=== PATIENT | male | born 1955 | race American Indian/Alaskan Native ===

== ENCOUNTER 2022-03-25 12:14 | Emergency (ER) | payer MEDICARE ==
[2022-03-25 13:50] VITALS: BP 121/56
== END 2022-03-26 02:12 | disposition left against medical advice (07) ==
LOC: EDBD → ED 12:14
DX: R07.9 Chest pain, unspecified (principal); R10.9 Unspecified abdominal pain; Z53.21 Procedure and treatment not carried out due to patient leaving prior to being seen by health care provider

== ENCOUNTER 2022-04-12 16:41 | Emergency (ER) | payer MEDICARE ==
--- NOTE | 2022-04-12 18:06 | XRay Report ---
CHEST 1 VIEW 04/12/2022 4:57 PM INDICATION / CLINICAL INFORMATION: Dyspnea. COMPARISON: None available. FINDINGS: SUPPORT DEVICES: None. HEART / MEDIASTINUM: The heart size and pulmonary vasculature are normal. LUNGS / PLEURA: No significant pulmonary or pleural abnormality. No pneumothorax. ADDITIONAL FINDINGS: No significant additional findings. IMPRESSION: No acute findings. Signer Name: Walter Echavarria MD Signed: 04/12/2022 6:02 PM Workstation Name: [id number]
[2022-04-12 18:58] LABS: Albumin 4.6 g/dL (3.9-5); Calcium 10.2 mg/dL (8.4-10.2)
[2022-04-12 19:06] LABS: Hematocrit 35.8 % (35.5-45.6); Hemoglobin 12.4 gm/dl (11.8-15.2); Mean Corpuscular HGB Conc 35 % (32-34); Mean Corpuscular Volume 94 fl (84-94); Platelet Count 197 K/mm3 (140-440); Red Cell Distribution Width 15.2 % (13.2-15.2)
[2022-04-12 19:45] VITALS: BP 134/59
--- NOTE | 2022-04-12 20:53 | Emergency Department Report ---
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 States he was at a routine follow-up visit and was noted to have severe swelling in his ankles. Patient also endorsed shortness of breath/difficulty breathing. He reportedly is not on any diuretics. - Related Data Previous Rx's Medication Instructions Recorded Last Taken Type Furosemide [Lasix] 40 mg PO DAILY #5 04/12/22 Unknown Rx Allergies Allergy/AdvReac Type Severity Reaction Status Date / Time No Known Allergies Allergy Unverified 03/25/22 13:40 ED Review of Systems ROS: Stated complaint: CHF/SOB Other details as noted in HPI Comment: All other systems reviewed and negative Constitutional: denies: chills, fever Respiratory: shortness of breath. denies: cough, wheezing Cardiovascular: edema. denies: chest pain, palpitations Gastrointestinal: denies: abdominal pain, nausea, diarrhea Musculoskeletal: denies: back pain, joint swelling, arthralgia Skin: denies: rash, lesions Neurological: denies: headache, weakness, paresthesias Psychiatric: denies: anxiety, depression ED Past Medical Hx - Past Medical History Previous Medical History?: Yes Hx Hypertension: Yes Hx Congestive Heart Failure: Yes Hx Diabetes: Yes Hx COPD: Yes Additional medical history: Alzheimer - Surgical History Past Surgical History?: Yes Additional Surgical History: colon resection - Social History Smoking Status: Unknown if ever smoked - Medications Home Medications: Home Medications Medication Instructions Recorded Confirmed Last Taken Type Furosemide [Lasix] 40 mg PO DAILY #5 04/12/22 Unknown Rx ED Physical Exam - General Limitations: No Limitations General appearance: alert, in no apparent distress - Head Head exam: Present: atraumatic, normocephalic - Neck Neck exam: Present: normal inspection - Respiratory Respiratory exam: Present: normal lung sounds bilaterally. Absent: respiratory distress - Cardiovascular Cardiovascular Exam: Present: regular rate, normal rhythm, normal heart sounds - GI/Abdominal GI/Abdominal exam: Present: soft. Absent: distended, tenderness - Extremities Exam Extremities exam: Present: pedal edema (Bilateral pitting edema to lower legs) - Neurological Exam Neurological exam: Present: alert, oriented X3 - Psychiatric Psychiatric exam: Present: normal affect, normal mood - Skin Skin exam: Present: warm, dry, intact, normal color ED Course Vital Signs 04/12/22 04/12/22 04/12/22 16:55 18:01 19:42 Temperature 97.5 F L Pulse Rate 65 81 Respiratory 20 21 Rate Blood Pressure 132/61 Blood Pressure 134/59 [Left] O2 Sat by Pulse 100 98 99 Oximetry ED Medical Decision Making - Lab Data Result diagrams: 04/12/22 18:15 04/12/22 18:15 - Medical Decision Making Chest x-ray normal. CBC and CMP grossly unremarkable. Creatinine 1.5. Patient currently satting 100% on room air. He does not appear to be in any acute respiratory distress. I discussed results with patient and family. Will d ischarge home with short course of Lasix. Follow-up with PCP at earliest convenience. Critical care attestation.: If time is entered above; I have spent that time in minutes in the direct care of this critically ill patient, excluding procedure time. ED Disposition Clinical Impression: Peripheral edema, Dyspnea Disposition: 01 HOME / SELF CARE / HOMELESS Is pt being admited?: No Does the pt Need Aspirin: No Condition: Stable Instructions: Shortness of Breath, Adult, [id number], Peripheral Edema Time of Disposition: 20:53
[2022-04-12 22:47] LABS: Basophils % (Manual) 0 % (0.0-1.8); Eosinophils % (Manual) 0 % (0.0-4.3); Total Cells Counted 100
[2022-04-12 22:48] LABS: Ovalocytes 1+
[2022-04-12 22:52] LABS: Helmet Cells Rare; Platelet Estimate Consistent w Auto
[2022-04-12 22:53] LABS: Anisocytosis Few
--- NOTE | 2022-04-13 13:30 | Electrocardiograph Report ---
[facility] Test Date: 2022-04-12 Test Time: 16:50:06 Pat Name: MEGHANN GARCIA Department: Room: Gender: M Maintenance Assistant: WALTER : 1955 Requested By: JUANITA SHORE Order Number: [id number] Reading MD: Gypsy Doshi Measurements Intervals [place] Rate: 61 P: 75 CO: 134 QRS: -12 QRSD: 105 T: 47 QT: 415 QTc: 419 Interpretive Statements Sinus rhythm Probable LVH with secondary repol abnrm No previous ECG available for comparison Electronically Signed On 04-13-2022 13:30:27 EDT by Gypsy Doshi
== END 2022-04-12 21:40 | disposition home or self-care (01) ==
LOC: ED 16:41
DX: R60.9 Edema, unspecified (principal); R06.00 Dyspnea, unspecified
CPT/HCPCS: 36415; 71045; 80053; 83880; 85007; 85025; 93005; 99283